=== PATIENT | male | born 1990 | race Caucasian/White ===

== ENCOUNTER 2018-10-22 12:20 | Emergency (ER) | payer OTHER ==
--- NOTE | 2018-10-22 13:06 | EDM.PDOC ---
ED HPI GENERAL MEDICAL PROBLEM - General Chief Complaint: General Stated Complaint: [facility] Time Seen by Provider: 10/22/18 12:46 Source of Information: Reports: Patient History Limitations: Reports: No Limitations - History of Present Illness INITIAL COMMENTS - FREE TEXT/NARRATIVE: 28-year-old male arrives via [facility] for evaluation and treatment half flashes and blurry vision. Patient reports he was at work. He states that suddenly developed blurry vision. He describes a "half c " in his vision. It is resolved now upon arrival to the ER. He denies any eye pain or headaches this. He states at this time he has a very minimal headache. He states that he felt hot, lightheaded and tingly. He had a metallic taste in his mouth. This lasted maybe 4 minutes. He denies any syncope or shortness of breath. Patient denies any chest pain with this. He has been seen in the ER and by his primary care provider recently for chest pain. He was recently started on citalopram about 5 days ago for anxiety. Patient did have diarrhea last night. He states he took antidiarrheal medication as well as an antacid; this resolved his heartburn and diarrhea. He denies any recent fevers, chills or any recent vomiting. He has had a sinus infection requiring antibiotics. Reports history of hypertension is currently on lisinopril. He is chronic back pain is scheduled to have an MRI of his thoracic spine in the coming weeks. Primary care provider is Miranda Landeros. Onset: Today, Sudden Duration: Improving - Related Data Allergies Allergy/AdvReac Type Severity Reaction Status Date / Time Penicillins Allergy Rash Verified 10/22/18 12:23 Home Meds: Home Meds Allopurinol [Zyloprim] 300 mg PO DAILY 09/28/18 [History] Lisinopril 20 mg PO DAILY 09/28/18 [History] Escitalopram [Lexapro] 10 mg PO DAILY 10/22/18 [History] LORazepam [Ativan] 0.5 mg PO TID PRN #7 tablet 10/22/18 [Rx] Past Medical History Cardiovascular History: Reports: Hypertension Musculoskeletal History: Reports: Back Pain, Chronic Neurological History: Reports: Concussion Psychiatric History: Reports: Anxiety - Past Surgical History GI Surgical History: Reports: Hernia Repair/Other Social & Family History - Family History Cardiac: Reports: [place] - Tobacco Use Smoking Status *Q: Never Smoker - Recreational Drug Use Recreational Drug Use: No ED ROS GENERAL - Review of Systems Review Of Systems: See Below Constitutional: Denies: Fever Respiratory: Denies: Shortness of Breath Cardiovascular: Reports: Other (heartburn last night, now resolved). Denies: Chest Pain GI/Abdominal: Reports: Nausea. Denies: Diarrhea (last night, now resolved), Vomiting Neurological: Reports: Headache, Tingling. Denies: Numbness, Syncope ED EXAM, GENERAL - Physical Exam Exam: See Below Exam Limited By: No Limitations General Appearance: Alert, WD/WN, No Apparent Distress, Obese Eye Exam: Bilateral Eye: Normal Inspection Ears: Normal External Exam Nose: Normal Inspection Throat/Mouth: Normal Inspection, Normal Lips, Normal Voice, No Airway Compromise Respiratory/Chest: No Respiratory Distress, Lungs Clear, Normal Breath Sounds Cardiovascular: Normal Peripheral Pulses, Regular Rate, Rhythm, No Murmur GI/Abdominal: Normal Bowel Sounds, Soft, Non-Tender Neurological: Alert, Oriented, Normal Cognition Psychiatric: Normal Affect, Normal Mood Skin Exam: Warm, Dry, Normal Color Course - Vital Signs Last Recorded V/S: Last Vital Signs Temp 98.7 F 10/22/18 12:21 Pulse 75 10/22/18 14:36 Resp 16 10/22/18 14:36 BP 137/77 10/22/18 14:36 Pulse Ox 98 10/22/18 14:36 - Orders/Labs/Meds Labs: Laboratory Tests 10/22/18 10/22/18 Range/Units 13:19 13:19 WBC 13.41 H (4.23-9.07) K/mm3 RBC 4.96 (4.63-6.08) M/mm3 Hgb 14.6 (13.7-17.5) gm/L Hct 42.2 (40.1-51.0) % MCV 85.1 (79.0-92.2) fl MCH 29.4 (25.7-32.2) pg MCHC 34.6 (32.2-35.5) g/dl RDW Std Deviation 40.5 (35.1-43.9) fL Plt Count 311 (163-337) K/mm3 MPV 9.3 L (9.4-12.3) fl Neut % (Auto) 82.5 H (34.0-67.9) % Lymph % (Auto) 13.1 L (21.8-53.1) % Russell % (Auto) 3.4 L (5.3-12.2) % Eos % (Auto) 0.4 L (0.8-7.0) Baso % (Auto) 0.2 (0.1-1.2) % Neut # (Auto) 11.06 H (1.78-5.38) K/mm3 Lymph # (Auto) 1.76 (1.32-3.57) K/mm3 Russell # (Auto) 0.46 (0.30-0.82) K/mm3 Eos # (Auto) 0.05 (0.04-0.54) K/mm3 Baso # (Auto) 0.03 (0.01-0.08) K/mm3 Sodium 135 L (136-145) mEq/L Potassium 4.1 (3.5-5.1) mEq/L Chloride 101 (98-107) mEq/L Carbon Dioxide 26 (21-32) mEq/L Anion Gap 12.1 (5-15) BUN 18 (7-18) mg/dL Creatinine 1.0 (0.7-1.3) mg/dL Est Cr Clr Drug Dosing 125.40 mL/min Estimated GFR (MDRD) > 60 (>60) mL/min BUN/Creatinine Ratio 18.0 (14-18) Glucose 117 H (74-106) mg/dL Calcium 9.5 (8.5-10.1) mg/dL Magnesium 1.8 (1.8-2.4) mg/dl Total Bilirubin 0.4 (0.2-1.0) mg/dL AST 18 (15-37) U/L ALT 33 (16-63) U/L Alkaline Phosphatase 71 (46-116) U/L Total Protein 8.0 (6.4-8.2) g/dl Albumin 4.2 (3.4-5.0) g/dl Globulin 3.8 gm/dL Albumin/Globulin Ratio 1.1 (1-2) TSH 3rd Generation 1.666 (0.358-3.74) uIU/mL - Re-Assessments/Exams Free Text/Narrative Re-Assessment/Exam: 10/22/18 14:30 Checked on the patient. Reviewed the labs with him. His headache is resolved. Vision changes have resolved. I feel this is most likely panic attack. He did have a chest pain evaluation recently. As for the citalopram as I don't think this is what's causing his symptoms today. Encouraged him to stay on this medication. I'll prescribe a little Ativan. Discharge instructions as documented. Departure - Departure Time of Disposition: 14:30 Disposition: Home, Self-Care 01 Condition: Fair Clinical Impression: Anxiety, Panic attack - Discharge Information *PRESCRIPTION DRUG MONITORING PROGRAM REVIEWED*: No *COPY OF PRESCRIPTION DRUG MONITORING REPORT IN PATIENT ASHLEIHG: No Prescriptions: LORazepam [Ativan] 0.5 mg PO TID PRN #7 tablet PRN Reason: Anxiety Instructions: Panic Attack, [id number], Living With Anxiety Referrals: PCP,Unknown [Family Provider] - Brianna Gomez PA-C [Primary Care Provider] - Forms: ED Department Discharge Additional Instructions: Continue on your citalopram. Recommend resting the rest of the day and making sure you are drinking plenty of fluids. Follow up with Miranda this week for recheck of your symptoms. Take the ativan 1 tab 3 times a day as needed for anxiety and panic attacks. Position to the ER if your symptoms change or worsen.
== END 2018-10-22 14:45 | disposition home or self-care (01) ==
LOC: JD.ED 12:20
DX: F41.0 Panic disorder [episodic paroxysmal anxiety] (principal); I10 Essential (primary) hypertension; Z88.0 Allergy status to penicillin; Z79.899 Other long term (current) drug therapy
CPT/HCPCS: 36415; 80053; 83735; 84443; 85025; 99283; 99285